=== PATIENT | female | born 1980 | race Caucasian/White ===

== ENCOUNTER 2022-12-10 02:21 | Day surgery (SDC) | payer BC, SELFPAY ==
[2022-12-02 15:30] VITALS: BMI 21.2
--- NOTE | 2022-12-02 15:34 | PC.NURSE ---
Report to the Outpatient Waiting Room, entrance under the green pavilion located off [facility], at time 0730 on date 12/10/22. Planned Procedure Time: 0930. Time changes happen often and if your time is changed the preop area will call you the afternoon before. - You and your visitor will be asked to self-screen and do not enter if you have any COVID symptoms. - Only one visitor is requested with a max of two and NO children visitors are allowed at this time. - The patient visitor may be requested to leave or wait in car when not with patient due to distancing restrictions. - A mask is REQUIRED within the hospital. Patients may have clear liquids (water, carbonated beverages, clear teas, apple juice) until 3 hours prior to surgery with a maximum of 20 ounces. - No food from midnight until time of surgery Take the following medications with a SIP of water the morning of surgery: N/A Medications to discontinue per physician: VITAMINS Date to take last dose: 12/05/22 Please no make-up, nail hebrew, hairspray, perfume, deodorant, or body powder the day of surgery. No jewelry (including any body piercings) or valuables the day of surgery, leave them at home. Please take a shower or bath the night before, or the morning of, surgery with an antibacterial soap. Wear comfortable, loose fitting clothing. - Jewelry must be removed prior to entering the operating room. Rings and piercings that are not removed may be cut off. - The hospital will not accept responsibility for valuables. - Please leave all valuables, including medications, at home the day of surgery. If you are going home after surgery, a licensed trolley coach driver must drive you home. - NO public transportation without another adult if you receive anesthesia. - We recommend that an adult stay with you for 24 hours following discharge. - We also recommend that you do not drive, make important decision, drink alcoholic beverages, or take any drugs that were not prescribed by your health care provider for at least 24 hours after your discharge time. Follow any additional instructions given to you from your surgeon. If you or anyone in your household have experienced Covid symptoms in the past week, please notify your surgeon or the nurse liaison at the phone number below for possible testing. Telephone instructions given to PT - FEMI DUQUE and asked if any additional questions and then verbalized understanding. Patient advised to call surgeon office or pre surgery nurse liaison [phone] if any additional questions.
--- NOTE | 2022-12-09 11:42 | P.PNAN_ITS ---
Anes - Initial Pre Proc Eval Procedure: Operation Date: 12/10/22 09:30 Proposed Procedures p Loop Electrical Excision Procedure - Leonidas Silva MD Date/Time: 12/09/22 11:42 Surgeon: Leonidas Silva MD Pre Op Diagnosis: Cervical Dysplasia Patient Data Age: 42 Gender: F Height: 1.6 m Weight: 54.5 kg Allergies Allergy/AdvReac Type Severity Reaction Status Date / Time Sulfa (Sulfonamide Allergy Unknown Rash Verified 12/10/22 07:36 Antibiotics) Home Medications Medication Instructions Recorded Confirmed Type multivitamin 1 tablet PO DAILY 12/02/22 12/02/22 History Patient hx anesthesia problems: none Family hx anesthesia problems: none Results Review: All pre-operative results and documents have been reviewed as part of the pre- operative evaluation. FOR[facility]LY [facility] Past Medical History Medical History Encounter for immunization Low grade squamous intraepithelial lesion (LGSIL) on Papanicolaou smear of cervix Ovarian torsion Screening mammogram for breast cancer Screening mammogram for breast cancer Surgical History Surgical History (Updated 12/09/22 @ 11:42 by Sorin Morales DO) H/O colposcopy with cervical biopsy seema 1-09/04/2021 04-19-2020 History of breast augmentation History of endometrial ablation History of gynecologic surgery [id number] History of tubal ligation Family History Family History Other Cerebrovascular accident Heart disease Hypertension Social History Social History Smoking status: Former smoker Tobacco type: cigarettes Additional smoking assessment comments: IN COLLEGE Alcohol intake: current Drinks per week: 3 Alcohol use details: socially Substance use: never Substance use type: does not use Living arrangements: with family Additional occupation/education comments: pharmacist Gender identity (if verbalized by the patient): Female Sexual Orientation (if Verbalized by the Patient): Straight or Heterosexual Spiritual care concerns: No Anes - Eval Final PreProcedure Day of Procedure 12/09/22 11:42 Patient weight: normal Heart: regular rate and rhythm Lungs: clear to auscultation and normal air movement Airway: Mallampati scale class II Neurological: alert and oriented Last oral intake: >/= 8 hours ASA classification: I Emergent: no Anesthetic plan: proceed Anesthesia type and monitoring: general GIVS and standard monitoring Results Review: All pre-operative results and documents have been reviewed as part of the pre- operative evaluation. Informed Consent: The patient's anesthetic plan and its attendant risks and benefits were discussed with the patient/family/POA. Questions were solicited and answers provided to the satisfaction of the patient/family/POA.
--- NOTE | 2022-12-10 07:22 | WPDHPUPDATE1 ---
History and Physical Update Update Date/Time: 12/10/22 07:22 Assessment: 1. Persistent low-grade squamous intraepithelial lesion of the cervix Plan: 1. Proceed with LEEP conization of the cervix. History and Physical has been reviewed, including an updated exam of the patient. There are NO changes in the patient's condition. Risks, benefits, and alternatives have been discussed and questions answered. Patient agrees to proceed with procedure.
[2022-12-10] MEDS: ACETAMINOPHEN 500 MG TABLET 1000 MG PO (07:39)
[2022-12-10] MEDS: LACTATED RINGERS 1,000 ML 30 ML IV CONT (08:02)
[2022-12-10 08:05] VITALS: BP 125/82; PULSE 86; RESP 16; TEMP 37.1; O2SAT 100
[2022-12-10] MEDS: LIDOCAINE 1% BUFFERED WITH 8.4% SODIUM BICARB 1 ML SYRINGE 10 ML INFILTRATE (09:40)
--- NOTE | 2022-12-10 09:44 | W.PM.PROC2 ---
Procedure Note - Detailed Date of Procedure 12/10/22 Pre-op Diagnosis 1. Persistent low grade squamous intraepithelial lesion of the cervix Post-op Diagnosis Same Procedure Performed 1. LEEP conization of the cervix ( endo and ectocervical specimens) Surgeon Leoniads Silva MD Anesthesia MAC and Local Findings transformation zone well delineated Description of Procedure patient prepped draped in usual manner for this procedure. Lidocaine was used for a paracervical block. Lugol solution was used to delineate the transformation zone and once this was done the appropriate size LEEP instrument was obtained. Ecto and endocervical specimens were removed without difficulty. Bed of the biopsy site was cauterized. Patient was sent to recovery room stable condition. Estimated Blood Loss 10 Drains No Packing No Pathology Yes Complications No immediate complications Condition Stable Disposition PACU [facility] Billing Surgery - Charge Forward: Surgery Billing
[2022-12-10 09:50] VITALS: BP 114/62; PULSE 88; RESP 14; O2SAT 98
[2022-12-10 10:20] VITALS: BP 113/76; PULSE 73; RESP 16
== END 2022-12-10 10:55 | disposition home or self-care (01) ==
PROVIDERS: PCP Internal Medicine; Visit Provider Obstetrics & Gynecology
PROC: 0UBC7ZZ Excision of Cervix, Via Natural or Artificial Opening (ICD-10-PCS; CPT 57522; principal; 2022-12-10 09:30)
DX: R87.612 Low grade squamous intraepithelial lesion on cytologic smear of cervix (LGSIL) (principal)
CPT/HCPCS: 57522; 88307; A9270; J2250; J2704; J3010; J7120

== ENCOUNTER 2024-11-21 09:47 | Outpatient (CLI) | payer BC, SELFPAY ==
--- NOTE | ~2024-11-21 | MM_ITS ---
EXAMINATION: MM scrn reta implant BI w denilson HISTORY: Screening mammogram TECHNIQUE: Craniocaudal and mediolateral oblique 3-D tomosynthesis images with implant displacement a nd synthetic 2-D images were generated. Craniocaudal and mediolateral oblique views of the breasts wi thout implant displacement were obtained using full field digital mammography. CAD analysis was submi tted and interpreted. COMPARISON: No prior mammogram is available for comparison at this institution. BREAST PARENCHYMAL COMPOSITION: There are scattered areas of fibroglandular density. FINDINGS: There is no evidence of suspicious mass, calcification, or architectural distortion to sugg est malignancy in either breast. There has been no suspicious interval change. IMPRESSION: No mammographic evidence of malignancy. Recommend routine screening mammography in one year. BI-RADS Category 1: Negative Reviewed, dictated and finalized at location . [facility]
== END 2024-11-21 09:48 | disposition home or self-care (01) ==
PROVIDERS: PCP Internal Medicine; Visit Provider Obstetrics & Gynecology
DX: Z12.31 Encounter for screening mammogram for malignant neoplasm of breast (principal); Z98.82 Breast implant status
CPT/HCPCS: 77063; 77067